=== PATIENT | male | born 1985 | race Caucasian/White ===

== ENCOUNTER 2023-04-25 09:43 | Emergency (ER) | payer OTHER ==
[2023-04-25 10:00] VITALS: TEMP 97.8
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
[2023-04-25 11:44] VITALS: BP 113/74; PULSE 64; RESP 16
== END 2023-04-25 11:25 | disposition home or self-care (01) ==
LOC: EC 09:43
DX: S09.90XA Unspecified injury of head, initial encounter (principal); F17.290 Nicotine dependence, other tobacco product, uncomplicated; Z90.49 Acquired absence of other specified parts of digestive tract; V23.49XA Other motorcycle driver injured in collision with car, pick-up truck or van in traffic accident, initial encounter; Y92.410 Unspecified street and highway as the place of occurrence of the external cause
CPT/HCPCS: 70450; 72125; 99284